=== PATIENT | male | born 1990 | race Caucasian/White ===

== ENCOUNTER 2018-11-19 17:32 | Emergency (ER) | payer BC ==
[2018-11-19 18:13] VITALS: BP 117/83
[2018-11-19] MEDS ORDERED: Amoxicillin PO (*) 500 MG CAP PO ONE (18:29)
--- NOTE | 2018-11-19 18:29 | UC ---
Throat Pain/Nasal Дмитрий HPI - HPI Summary HPI Summary: 27-year-old male comes in with a chief complaint of upper respiratory tract infection symptoms. Symptoms started about 8 days ago. Initially started with a sore throat. Pain was worse when he swallowed. That did improve and then he got or sinus pressure rhinorrhea ear pressure. No chest congestion no shortness of breath. [id number] medicines are not helping very much with the symptoms. - History of Current Complaint Chief Complaint: UCGeneralIllness Stated Complaint: SORE THROAT,SINUS COMPLAINT Time Seen by Provider: 11/19/18 18:05 Pain Intensity: 7 - Allergies/Home Medications Allergies/Adverse Reactions: Allergies Allergy/AdvReac Type Severity Reaction Status Date / Time No Known Allergies Allergy Verified 11/19/18 18:12 PMH/Surg Hx/FS Hx/Imm Hx Previously Healthy: Yes - Surgical History Surgical History: Yes Surgery Procedure, Year, and Place: VARICOCELE REPAIR - Family History Known Family History: Positive: Non-Contributory - Social History Alcohol Use: Rare Substance Use Type: None Smoking Status (MU): Never Smoked Tobacco Review of Systems All Other Systems Reviewed And Are Negative: Yes Constitutional: Positive: Fever, Chills Skin: Positive: Negative Eyes: Positive: Negative ENT: Positive: Sore Throat, Ear Ache, Nasal Discharge, Sinus Congestion, Sinus Pain/Tenderness Respiratory: Positive: Negative Cardiovascular: Positive: Negative Gastrointestinal: Positive: Negative Motor: Positive: Negative Neurovascular: Positive: Negative Musculoskeletal: Positive: Negative Neurological: Positive: Negative Psychological: Positive: Negative Is Patient Immunocompromised?: No Physical Exam Triage Information Reviewed: Yes Appearance: No Pain Distress, Well-Nourished, Ill-Appearing - MILD Vital Signs: Initial Vital Signs Temp 99.2 F 11/19/18 18:06 Pulse 86 11/19/18 18:06 Resp 18 11/19/18 18:06 BP 117/83 11/19/18 18:06 Pulse Ox 100 11/19/18 18:06 Vital Signs Reviewed: Yes Eye Exam: Normal Eyes: Positive: Conjunctiva Clear ENT: Positive: Pharyngeal erythema, Nasal congestion, Nasal drainage, TMs normal Neck: Positive: Supple Respiratory: Positive: Lungs clear, Normal breath sounds, No respiratory distress Cardiovascular: Positive: RRR Musculoskeletal Exam: Normal Musculoskeletal: Positive: Strength Intact, ROM Intact Neurological: Positive: Alert, Muscle Tone Normal Psychological Exam: Normal Psychological: Positive: Age Appropriate Behavior Skin Exam: Normal Throat Pain/Nasal Course/Dx - Course Course Of Treatment: DISCUSSED VIRAL VERSES BACTERIAL INFECTION AND THE ROLE OF ANTIBIOTICS. THE PATIENT PREFERS TO BE ON ANTIBIOTICS AT THIS TIME. - Differential Dx/Diagnosis Provider Diagnosis: Upper respiratory infection Discharge - Sign-Out/Discharge Documenting (check all that apply): Patient Departure All imaging exams completed and their final reports reviewed: No Studies - Discharge Plan Condition: Stable Disposition: HOME Prescriptions: Amoxicillin PO (*) [Amoxicillin 875 MG (*)] 875 mg PO BID #19 tab Patient Education Materials: Upper Respiratory Infection (ED) Referrals: [facility] [Outside] Additional Instructions: FOLLOW UP WITH YOUR DOCTOR IF NOT COMPLETELY IMPROVED. GET RECHECKED SOONER IF YOUR CONDITION WORSENS OR ANY QUESTIONS OR CONCERNS. - Billing Disposition and Condition Condition: STABLE Disposition: Home
== END 2018-11-19 18:35 | disposition home or self-care (01) ==
LOC: EDUNIT# → UCCORT 17:32
DX: J06.9 Acute upper respiratory infection, unspecified (principal)
CPT/HCPCS: 99212; A9270-GY; G0463

== ENCOUNTER 2018-12-11 19:10 | Emergency (ER) | payer BC ==
[2018-12-11 19:47] VITALS: BP 130/62
[2018-12-11] MEDS ORDERED: Azithromycin TAB* 250 MG PO ONE (20:01)
[2018-12-11] MEDS ORDERED: predniSONE TAB* 20 MG PO ONE (20:01)
[2018-12-11] MEDS ORDERED: Acetaminophen TAB* 325 MG PO ONE (20:02)
[2018-12-11] MEDS ORDERED: Albuterol HFA INHALER* 8 gm MDI INH ONE ×2 (20:02→20:25)
[2018-12-11] MEDS ORDERED: Ibuprofen TAB* 600 MG PO ONE (20:02)
--- NOTE | 2018-12-11 20:32 | ED ---
Respiratory - HPI Summary HPI Summary: pt is a 27 year old male who presents to the ED with is mother for respiratory complaints primarily. he states that his symptoms started this weekend. it has gotten worse. he is having a productive cough. he still went to work. - History of Current Complaint Chief Complaint: UCGeneralIllness Stated Complaint: THROAT,CHEST CONGESTION Hx Obtained From: Patient, Family/Recreation Superintendent Onset/Duration: Gradual Onset Timing: Constant Initial Severity: Mild Current Severity: Mild Pain Intensity: 8 Character: Wheezing, Cough (Productive) Sputum Amount: Moderate Sputum Color: Yellow - Allergy/Home Medications Allergies/Adverse Reactions: Allergies Allergy/AdvReac Type Severity Reaction Status Date / Time No Known Allergies Allergy Verified 12/11/18 19:47 PMH/Surg Hx/FS Hx/Imm Hx Previously Healthy: Yes Endocrine/Hematology History: Denies: Hx Diabetes, Hx Thyroid Disease Cardiovascular History: Denies: Hx Hypertension Respiratory History: Denies: Hx Asthma, Hx Chronic Obstructive Pulmonary Disease (COPD) GI History: Denies: Hx Ulcer - Surgical History Surgery Procedure, Year, and Place: VARICOCELE REPAIR, T&A Infectious Disease History: No Infectious Disease History: Denies: Hx Hepatitis, Hx Human Immunodeficiency Virus (HIV), Traveled Outside the [place] in Last 30 Days - Family History Known Family History: Positive: Non-Contributory - Social History Alcohol Use: Rare Substance Use Type: Reports: None Smoking Status (MU): Never Smoked Tobacco Review of Systems Positive: Fatigue. Negative: Fever, Chills Eyes: Negative ENT: Negative Cardiovascular: Negative Positive: Shortness Of Breath, Cough Gastrointestinal: Negative Negative: Abdominal Pain, Vomiting Genitourinary: Negative Musculoskeletal: Negative Skin: Negative Neurological: Negative Psychological: Normal All Other Systems Reviewed And Are Negative: No Physical Exam Triage Information Reviewed: Yes Vital Signs On Initial Exam: Initial Vitals Temp Pulse Resp BP Pulse Ox 98.7 F 86 16 130/62 99 12/11/18 19:41 12/11/18 19:41 12/11/18 19:41 12/11/18 19:41 12/11/18 19:41 Vital Signs Reviewed: Yes Appearance: Positive: No Pain Distress, Well-Nourished Skin: Positive: Warm, Dry Eyes: Positive: Normal, EOMI, DAWN ENT: Positive: Hearing grossly normal, Pharyngeal erythema, TMs normal. Negative: Nasal congestion, Nasal drainage Neck: Positive: Supple, Nontender Respiratory/Lung Sounds: Positive: Clear to Auscultation, Breath Sounds Present Cardiovascular: Positive: Normal, RRR Abdomen Description: Positive: Nontender, Soft Bowel Sounds: Positive: Present Musculoskeletal: Positive: Normal, Strength/ROM Intact Neurological: Positive: Normal, Sensory/Motor Intact, Alert, Oriented to Person Place, Time, CN Intact II-III Psychiatric: Positive: Normal AVPU Assessment: Alert Diagnostics - Vital Signs Vital Signs Temp Pulse Resp BP Pulse Ox 12/11/18 19:41 98.7 F 86 16 130/62 99 - Laboratory Lab Statement: Any lab studies that have been ordered have been reviewed, and results considered in the medical decision making process. Disposition - Course Course Of Treatment: pt is a 27 year old male who has been cough a productive cough. he is feeling worse every day. his chest xray showed no evidence of pneumonia. he received a inhaler with spacer and instructions. he was started on steroids, antibiotics. he is feeling better. pt was instructed to f/u with pcp. he was also instructed to take over the counter cough and cold medications. - Diagnoses Provider Diagnoses: Bronchitis Discharge - Sign-Out/Discharge Documenting (check all that apply): Patient Departure All imaging exams completed and their final reports reviewed: No - Discharge Plan Condition: Stable Disposition: HOME Prescriptions: Albuterol HFA INHALER* [Ventolin HFA Inhaler*] 2 puff INH Q4H PRN #1 mdi PRN Reason: Wheezing Azithromyxin ENOCH (NF) [Z-Enoch (Zithromax) 250 mg tabs #6] 2 tab PO .TODAY, THEN 1 DAILY #6 tab predniSONE TAB* [Deltasone 20 MG TAB*] 60 mg PO DAILY #12 tab Patient Education Materials: Acute Bronchitis (ED) Forms: *Work Release Referrals: Esau Vincent MD [Primary Care Provider] - Additional Instructions: take the antibiotic and use the inhaler with spacer as instructed. take the prednisone as instructed. take tylenol and motrin for body aches or fever and chills. go to the Emergency dept if you are worse. it is always important to follow up with your primary care physician. use over the counter cough and cold medicines for your symptoms. - Billing Disposition and Condition Condition: STABLE Disposition: Home
--- NOTE | 2018-12-12 08:54 | UC ---
- Progress Note Progress Note: chest xray report : IMPRESSION: NO EVIDENCE FOR ACTIVE CARDIOPULMONARY DISEASE. Course/Dx - Diagnoses Provider Diagnoses: Bronchitis Discharge - Sign-Out/Discharge Documenting (check all that apply): Patient Departure All imaging exams completed and their final reports reviewed: Yes - Discharge Plan Condition: Stable Disposition: HOME Prescriptions: Albuterol HFA INHALER* [Ventolin HFA Inhaler*] 2 puff INH Q4H PRN #1 mdi PRN Reason: Wheezing Azithromyxin ENOCH (NF) [Z-Enoch (Zithromax) 250 mg tabs #6] 2 tab PO .TODAY, THEN 1 DAILY #6 tab predniSONE TAB* [Deltasone 20 MG TAB*] 60 mg PO DAILY #12 tab Patient Education Materials: Acute Bronchitis (ED) Forms: *Work Release Referrals: Esau Vincent MD [Primary Care Provider] - Additional Instructions: take the antibiotic and use the inhaler with spacer as instructed. take the prednisone as instructed. take tylenol and motrin for body aches or fever and chills. go to the Emergency dept if you are worse. it is always important to follow up with your primary care physician. use over the counter cough and cold medicines for your symptoms. - Billing Disposition and Condition Condition: STABLE Disposition: Home
== END 2018-12-11 20:41 | disposition home or self-care (01) ==
LOC: UCCORT 19:10
DX: J40 Bronchitis, not specified as acute or chronic (principal)
CPT/HCPCS: 71046; 99213; A9270-GY; G0463; J7512